=== PATIENT | female | born 1995 | race Hispanic/Latino ===

== ENCOUNTER 2017-04-20 13:28 | Emergency (ER) | payer OTHER ==
--- NOTE | 2017-04-20 14:08 | ED NECK/BACK PAIN COMPLAINT ---
History of Present Illness General Chief Complaint: Low Back Pain/Injury Stated Complaint: LBP Source: patient Exam Limitations: no limitations Vital Signs & Intake/Output Vital Signs & Intake/Output Vital Signs Date Time Temp Pulse Resp B/P B/P Pulse O2 O2 Flow FiO2 Mean Ox Delivery Rate 04/20 1556 97.4 74 16 118/74 Room Air 04/20 1338 100 04/20 1335 97.8 79 16 120/77 100 Room Air ED Intake and Output 04/21 0000 04/20 1200 Intake Total Output Total 100 Balance -100 Output, Urine 100 Allergies Coded Allergies: No Known Allergies (04/20/17) Reconcile Medications Cyclobenzaprine HCl 10 MG TABLET 1 TAB PO QPM PRN muscle spasm Ibuprofen 800 MG TABLET 1 TAB PO TID PRN PAIN (Reported) Triage Note: PT C/O LOWER BACK PAIN FOR A FEW DAYS, DENIES ANY INJURY. Triage Nurses Notes Reviewed? yes Onset: Gradual Duration: day(s): Timing: recent history Quality/Severity: moderate Location: T-spine Context: OLD INJURY Method of Injury: fall (10 YEARS AGO) : No Patient currently breastfeeds: No HPI: 21-year-old female presents to emergency department complaining of back pain. Patient states that back pain began about 1 week ago with no inciting event or trauma. Back pain is described as sharp stabbing in her mid back with radiation anteriorly along ribs. She has tried taking Motrin 800 mg however this has not relieved her pain. She states that about 10 years ago she had a back injury from a fall onto her back, she was worked up with an MRI at that time however she does not know the results of her imaging. He is never seen a specialist for her back pain. She states her back pain resolves for many years however recent flareup this past week. She denies numbness, tingling, weakness of arms or legs , bowel or bladder incontinence, urinary frequency, hematuria, dysuria, radiation to groin, abdominal pain. She states she had Lyme disease in 2008 and has intermittent arthralgias, usually in her left knee, since then despite antibiotic treatment at that time. (ALEXIS HUERTA PA-C) Past History Travel History Traveled to [place] past 21 day No Medical History Any Pertinent Medical History? none Surgical History Surgical History: Psychosocial History What is your primary language [place] Tobacco Use: Never used Family History Hx Contributory? No (ALEXIS HUERTA PA-C) Review of Systems Review of Systems Constitutional: Reports: no symptoms. Eyes: Reports: no symptoms. Ears, Nose, Throat, Mouth: Reports: no symptoms. Respiratory: Reports: no symptoms. Cardiovascular: Reports: no symptoms. Gastrointestinal/Abdominal: Reports: no symptoms. Musculoskeletal: Reports: see HPI. Skin: Reports: no symptoms. Neurological/Psychological: Reports: no symptoms. All Other Systems: Reviewed and Negative (ALEXIS HUERTA PA-C) Physical Exam Physical Exam General Appearance: well developed/nourished, no apparent distress, alert, awake Head: atraumatic, normal appearance Eyes: Bilateral: normal appearance, EOMI. Ears, Nose, Throat, Mouth: hearing grossly normal Neck: normal inspection, supple, full range of motion, no midline tenderness Respiratory: normal breath sounds, chest non-tender, no respiratory distress, lungs clear Cardiovascular: regular rate/rhythm Back: normal inspection, normal range of motion, mild vertebral tenderness of thoracic spine and paraspinal muscles bilaterally, no CVA tenderness, No lumbar or SI joint tenderness Extremities: non-tender, normal range of motion Straight Leg Raising: Right: Negative. Left: Negative. DTR: Patellar: 2: L4 Right, L4 Left. Achilles: 2: S1 Right, S1 Left. Neurologic/Psych: no motor/sensory deficits, awake, alert, oriented x 3, strength 5/5 equally of bilateral lower extremities Skin: intact, normal color, warm/dry (ALEXIS HUERTA PA-C) Progress Differential Diagnosis: C spine injury, cauda equina syn, herniated disc, pyelo/ UTI, sciatica, spinal cord inj, T/L spine injury, ureterolithiasis Plan of Care: Orders Procedure Date/time Status URINE 04/20 1356 Complete Laboratory Tests 04/20/17 1403: Urine Test NEGATIVE 1402 - Patient states her current pain feels like sharp stabing pain in her midback. She is unsure if her pain could be related to her breast size. Will obtain xray to assess for signs of degeneration in T-spine. The patient injured her back 10 years ago however does not recall injury since then and her symptoms have not been present for many years. Cauda equina was considered however low suspicion at this time given no bowel/bladder incontinence, no radicular pain down legs, no saddle anesthesia. The patient was discussed with Dr. Rojas. 1540 - Imaging results were discussed with the patient. The patient was given a dose of IM toradol in the ED for her acute back pain flare up. She was given a prescription for flexoril to take at night and a referal for ortho/spine to follow up with this week for her back pain. She is nontoxic appearing, in no acute distress, she is able to ambulate entering and exiting the ED. The patient is in agreement with the plan of care. (DEANNA DAY,ALEXIS) Diagnostic Imaging: Viewed by Me: Radiology Read. Discussed w/RAD: Radiology Read. Radiology Impression: PATIENT: COLLEEN TAVAREZ PRESENT AGE: 21 PATIENT ACCOUNT NO: [id number] : 93 LOCATION: [facility] ORDERING PHYSICIAN: ALEXIS HUERTA PA-C SERVICE DATE: 04/20/17 EXAM TYPE: RAD - XRY-LUMBOSACRAL SPINE AP & LAT; XRY-THORACIC SPINE EXAMINATION: XR THORACIC SPINE XR LUMBAR SPINE CLINICAL INFORMATION: Back pain. COMPARISON: None TECHNIQUE: AP and lateral views of the thoracic spine. AP and lateral views of the lumbar spine. FINDINGS: THORACIC SPINE: Mild scoliotic positioning with normal thoracic kyphosis. No significant degenerative findings or acute abnormality demonstrated. LUMBAR SPINE: Rotatory levoconvex scoliosis with normal lordosis. No fracture. No disc space narrowing. IMPRESSION: Mild thoracolumbar scoliosis with no acute abnormalities. No disc space narrowing. DICTATED BY: VIRGINIA BARRAZA MD DATE/TIME DICTATED:04/20/171523 RECLAMATION ENGINEER:JOLENE DATE/TIME TRANSCRIBED:04/20/171523 CONFIDENTIAL, DO NOT COPY WITHOUT APPROPRIATE AUTHORIZATION. <Electronically signed in Other Vendor System> SIGNED BY: VIRGINIA BARRAZA MD 04/20/17 1537, PATIENT: COLLEEN TAVAREZ PRESENT AGE: 21 PATIENT ACCOUNT NO: [id number] : 93 LOCATION: ER ORDERING PHYSICIAN: ALEXIS HUERTA PA-C SERVICE DATE: 04/20/17 EXAM TYPE: RAD - XRY-LUMBOSACRAL SPINE AP & LAT; XRY -THORACIC SPINE EXAMINATION: XR THORACIC SPINE XR LUMBAR SPINE CLINICAL INFORMATION: Back pain. COMPARISON: None TECHNIQUE: AP and lateral views of the thoracic spine. AP and lateral views of the lumbar spine. FINDINGS: THORACIC SPINE: Mild scoliotic positioning with normal thoracic kyphosis. No significant degenerative findings or acute abnormality demonstrated. LUMBAR SPINE: Rotatory levoconvex scoliosis with normal lordosis. No fracture. No disc space narrowing. IMPRESSION: Mild thoracolumbar scoliosis with no acute abnormalities. No disc space narrowing. DICTATED BY: VIRGINIA BARRAZA MD DATE/TIME DICTATED:04/20/171523 RECLAMATION ENGINEER:JOLENE DATE/TIME TRANSCRIBED:04/20/171523 CONFIDENTIAL, DO NOT COPY WITHOUT APPROPRIATE AUTHORIZATION. <Electronically signed in Other Vendor System> SIGNED BY: VIRGINIA BARRAZA MD 04/20/17 1537 (ALEXIS HUERTA PA-C) Departure Departure Disposition: HOME OR SELF CARE Condition: Stable Clinical Impression Primary Impression: Back pain Secondary Impressions: Mild scoliosis, Muscle strain Referrals: MORENA HUMPHREYS,KAREN Oates JR. Additional Instructions: Follow up with orthopedic, Dr. Lemus, for your back pain to discuss further options. Take flexoril at night for muscle spasm, this medication may cause drowsiness, do not drive or drink alcohol while on this medication. Take tylenol or motrin as needed for your back pain. Return with any worsening symptoms or concerns, including numbess, paralysis, bladder incontenience, worseing constant pain. Departure Forms: Customer Survey General Discharge Information Prescriptions: Current Visit Scripts Cyclobenzaprine HCl 1 TAB PO QPM PRN muscle spasm #10 TAB (ALEXIS HUERTA PA-C) PA/CLIENT SUPPORT REPRESENTATIVE Co-Sign Statement Statement: ED Attending supervision documentation- [] I saw and evaluated the patient. I have also reviewed all the pertinent lab results and diagnostic results. I agree with the findings and the plan of care as documented in the PA's/CLIENT SUPPORT REPRESENTATIVE's documentation. [X] I have reviewed the ED Record and agree with the PA's/CLIENT SUPPORT REPRESENTATIVE's documentation. [] Additions or exceptions (if any) to the PAs/CLIENT SUPPORT REPRESENTATIVE's note and plan are summarized below: [] (MEGAN HUMPHREYS,VIRGIE Meneses)
[2017-04-20] MEDS ORDERED: IBUPROFEN800 M1 PO (14:11)
[2017-04-20] MEDS ORDERED: CYCLOBENZAPRINE10 M1 PO (15:30)
--- NOTE | 2017-04-20 15:37 | RADIOLOGY REPORT ---
EXAMINATION: XR THORACIC SPINE XR LUMBAR SPINE CLINICAL INFORMATION: Back pain. COMPARISON: None TECHNIQUE: AP and lateral views of the thoracic spine. AP and lateral views of the lumbar spine. FINDINGS: THORACIC SPINE: Mild scoliotic positioning with normal thoracic kyphosis. No significant degenerative findings or acute abnormality demonstrated. LUMBAR SPINE: Rotatory levoconvex scoliosis with normal lordosis. No fracture. No disc space narrowing. IMPRESSION: Mild thoracolumbar scoliosis with no acute abnormalities. No disc space narrowing.
[2017-04-20 15:56] VITALS: BP 118/74
== END 2017-04-20 15:58 ==
LOC: ERH 13:28
DX: S29.012A Strain of muscle and tendon of back wall of thorax, initial encounter (principal); M41.9 Scoliosis, unspecified
CPT/HCPCS: 72070; 72100; 81025; J1885